=== PATIENT | female | born 1945 | race Caucasian/White ===

== ENCOUNTER 2021-10-18 14:31 | Outpatient (CLI) | payer MEDICARE | END 2021-10-18 14:32 | disposition home or self-care (01) | LOC: CSHMAMMO 14:31 | PROVIDERS: ATTEND Family Medicine | DX: Z12.31 Encounter for screening mammogram for malignant neoplasm of breast (principal); Z13.820 Encounter for screening for osteoporosis; Z78.0 Asymptomatic menopausal state; M48.061 Spinal stenosis, lumbar region without neurogenic claudication; M48.02 Spinal stenosis, cervical region; Z80.3 Family history of malignant neoplasm of breast | CPT/HCPCS: 77063; 77067; 77080 ==

== ENCOUNTER 2022-06-12 13:55 | Outpatient (CLI) | payer MEDICARE | END 2022-06-12 13:56 | disposition home or self-care (01) | LOC: CSHMRI 13:55 | PROVIDERS: ATTEND Family Medicine | DX: M48.062 Spinal stenosis, lumbar region with neurogenic claudication (principal); M54.16 Radiculopathy, lumbar region; G89.4 Chronic pain syndrome; M47.816 Spondylosis without myelopathy or radiculopathy, lumbar region | CPT/HCPCS: 72148 ==

== ENCOUNTER 2022-11-26 12:24 | Outpatient (CLI) | payer MEDICARE | END 2022-11-26 12:25 | disposition home or self-care (01) | LOC: CSHMAMMO 12:24 | PROVIDERS: ATTEND Family Medicine | DX: Z12.31 Encounter for screening mammogram for malignant neoplasm of breast (principal); Z80.3 Family history of malignant neoplasm of breast | CPT/HCPCS: 77063; 77067 ==

== ENCOUNTER 2023-04-21 10:23 | Outpatient (CLI) | payer MEDICARE | END 2023-04-21 10:24 | disposition home or self-care (01) | LOC: CSHRAD 10:23 | PROVIDERS: ATTEND Neurological Surgery | DX: M54.50 Low back pain, unspecified (principal); M47.816 Spondylosis without myelopathy or radiculopathy, lumbar region; M89.8X8 Other specified disorders of bone, other site | CPT/HCPCS: 72110 ==

== ENCOUNTER 2023-07-09 13:22 | Emergency (ER) | payer MEDICARE ==
[2023-07-09] MEDS ORDERED: Morphine 4 MG/ML VIAL ONE (14:36)
[2023-07-09] MEDS ORDERED: Ketorolac Tromethamine 30 MG (1 mL) VIAL ONE (14:37)
[2023-07-09] MEDS ORDERED: Ondansetron PF 4 MG/2 ML Vial ONE (14:37)
[2023-07-09 14:40] LABS: #Basophils 0.1 10x3/uL (0.0-0.2); #Eosinphils 0.1 10x3/uL (0.0-0.5); #Monocytes 0.9 10x3/uL (0.0-1.1); #Neutrophils 5.9 10x3/uL (1.5-8.4); %Basophils 0.6 % (0.0-2.0); %Eosinophils 1.2 % (0.0-6.0); %Lymphocytes 22.9 % (18.0-47.0); %Monocytes 9.9 % (0.0-10.0); %Neutrophils 65.1 % (40.0-75.0); Hematocrit 41.5 % (34.9-44.5); Hemoglobin 14.2 g/dL (12.0-15.5); Mean Corpuscular HGB CONC 34.2 g/dL (32.0-36.0); Mean Corpuscular Hemoglobin 30.2 pg (27.0-33.0); Mean Corpuscular Volume 88.3 fl (81.6-98.3); Mean Platelet Volume 10.1 fl (7.4-10.4); Platelet Count 251 10x3/uL (150-450); White Blood Cell (WBC) Count 9.1 10x3/uL (3.5-10.5)
[2023-07-09 14:52] LABS: ALT (SGPT) 47 U/L (8-55); AST (SGOT) 35 U/L (5-34); Albumin 4.2 g/dL (3.4-4.8); Alkaline Phosphatase 127 U/L (40-110); Anion Gap 16 mmol/L (10-20); BUN (Urea Nitrogen) 12 mg/dL (9.8-20.1); Bilirubin, Total 2.5 mg/dL (0.2-1.2); Calc. Creatinine Clearance 0 mL/min (70-130); Calcium 10.1 mg/dL (7.8-10.44); Carbon Dioxide 23 mmol/L (23-31); Chloride 107 mmol/L (98-107); Estimated GFR 69; Globulin 2.6 g/dL (2.4-3.5); Glucose 88 mg/dL (83-110); Potassium 3.8 mmol/L (3.5-5.1); Protein, Total 6.8 g/dL (5.8-8.1); Sodium 142 mmol/L (136-145)
[2023-07-09 14:58] LABS: Troponin I Less than 0.010 ng/mL (< 0.028)
== END 2023-07-09 15:50 | disposition home or self-care (01) ==
LOC: CSHERS 13:22
DX: G89.29 Other chronic pain (principal); M54.2 Cervicalgia; M25.512 Pain in left shoulder; I48.91 Unspecified atrial fibrillation; I10 Essential (primary) hypertension
CPT/HCPCS: 36415; 71045; 80053; 84484; 85025; 93005; 96374; 96375; J1885; J2270; J2405